=== PATIENT | female | born 1940 | race Caucasian/White ===

== ENCOUNTER 2017-01-28 10:31 | Outpatient (CLI) | payer OTHER ==
[~2017-01-28 10:31] MED LIST: CALCIUM500 M1 PO; CHLORTHALIDONE25 MG PO; DICLOFENAC SODI75 MG PO; HYCET1 ML PO; KLOR-CON 1010 MEQ PO; SIMVASTATIN40 MG PO; VITAMIN D-31000 UNIT PO
--- NOTE | 2017-01-28 12:26 | DIAGNOSTIC IMAGING REPORT ---
PROCEDURE: MG UNILATERAL DIAG-LT W/CAD INDICATION: 6-month follow-up left breast nodules. TECHNIQUE: CC, MLO and true-lateral digital views of left breast. In addition, spot compression CC and MLO views were obtained of the upper outer left breast (region of clinical concern). Finally, high-resolution left breast ultrasound was performed (18 mHz). COMPARISON: Comparison is made to left mammogram left breast ultrasound on 07/13/2016, and screening mammogram on 07/05/2016. FINDINGS: MAMMOGRAM: Computer-aided detection applied. Moderately dense and mildly nodular. No evidence of mass or suspicious calcification BREAST ULTRASOUND: There three to four stable hypoechoic nodules in the upper central left breast (3- 7 mm) consistent with small or proteinaceous cysts, or benign fibroadenomas. No evidence of underlying abnormality. IMPRESSION: 1. Negative left mammogram. 2. Stable small benign nodules in the upper central left breast. 3. Resume routine screening schedule (June 2017). 4. Findings discussed with the patient. RESULT CODE: 2- Benign finding(s). A. A negative report should not delay biopsy if a dominant or clinically suspicious mass is present. 10-15% of cancers are not identified by x-ray. B. A negative report may reinforce clinical impression. C. Adenosis and dense breasts may obscure an underlying neoplasm. D. False positive reports average 6-10%. E.. A yearly screening mammogram is recommended. A reminder letter will be scheduled.
== END 2017-01-28 23:00 ==
LOC: MAM SRH 10:31
DX: R92.2 Inconclusive mammogram (principal)